=== PATIENT | female | born 1975 | race American Indian/Alaskan Native ===

== ENCOUNTER 2016-09-25 20:11 | Emergency (ER) | payer OTHER ==
[2016-09-25] MEDS ORDERED: BENADRYL IV ONE (20:56)
[2016-09-25] MEDS ORDERED: BENADRYL IM ONE (20:56)
[2016-09-25] MEDS ORDERED: PEPCID PO ONE (20:57)
[2016-09-25] MEDS ORDERED: DECADRON IM ONE (20:58)
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
[2016-09-26 01:21] VITALS: BP 148/84
== END 2016-09-26 01:22 | disposition home or self-care (01) ==
LOC: ED 20:11
DX: L23.89 Allergic contact dermatitis due to other agents (principal); G43.909 Migraine, unspecified, not intractable, without status migrainosus; J45.909 Unspecified asthma, uncomplicated; I95.9 Hypotension, unspecified; Z88.8 Allergy status to other drugs, medicaments and biological substances
CPT/HCPCS: 96372; 99282; J1100; J1200